=== PATIENT | male | born 1960 | race African-American/Black ===

== ENCOUNTER 2019-09-29 00:10 | Emergency (ER) | payer MEDICARE, MEDICAID ==
[~2019-09-29] VITALS: Ht 180.3 cm; Wt 81.6 kg
[2019-09-29 00:10] VITALS: BP 146/98
--- NOTE | 2019-09-29 00:34 | NUR ---
Dr Vazquez paged per Dr Esparza
--- NOTE | 2019-09-29 00:34 | NUR ---
PATIENT CAME TO ER BED 11 C/O DEPRESSION AND PAIN "ALL OVER HIS BODY". PATIENT STATES THAT HIS GIRLFRIEND TOOK HIS PAIN MEDICATIONS. HE STATES HE HAS CRYING SPELLS. HE DENIES SUICIDAL IDEATION AND HOMICIDAL INTENT. PATIENT IS AAOX4. NO SOB. BREATHING EVENLY AND UNLABORED ON ROOM AIR. CONNECTED TO MONITOR.
--- NOTE | 2019-09-29 01:30 | NUR ---
DR. PARMAR PAGED PER ER ORDER.
[2019-09-29] MEDS ORDERED: PREGABALIN 100 MG CAPSULE PO SCH (02:00)
[2019-09-29] MEDS ORDERED: PREGABALIN 100 MG CAPSULE ONE (03:12)
--- NOTE | 2019-09-29 03:15 | NUR ---
Obtained taxi voucher from nursing sup. Per [employer], no available taxi tonight.
--- NOTE | 2019-09-29 03:23 | NUR ---
Patient discharged to home in stable condition. Written and verbal after care instructions given. Patient verbalizes understanding of instruction.
--- NOTE | 2019-09-29 03:41 | NUR ---
PATIENT PICKED UP BY [facility].
== END 2019-09-29 03:49 | disposition home or self-care (01) ==
LOC: ER 00:13
DX: G89.29 Other chronic pain (principal)

== ENCOUNTER 2019-10-14 17:00 | Inpatient (IN) | payer MEDICARE, OTHER ==
[~2019-10-14] VITALS: Ht 172.7 cm; Wt 77.1 kg
--- NOTE | 2019-10-14 18:00 | NUR ---
patient came in to the er c/o depression x 3 months denies SI and HI. On room air, breathing evenly and unlabored. kept comfortable, will continue to monitor accordingly.
[2019-10-14 18:28] LABS: BASOPHILS % (AUTO) 0.3 % (0.0-2.0); EOSINOPHILS % (AUTO) 1.3 % (0.0-6.0); HEMATOCRIT 42 % (39-51); HEMOGLOBIN 13.7 g/dL (13.5-17.5); LYMPHOCYTES # (AUTO) 1.7 /CMM (0.8-4.8); LYMPHOCYTES % (AUTO) 22.2 % (20.0-44.0); MEAN CORPUSCULAR HGB CONC 33 g/dl (31.0-36.0); MEAN CORPUSCULAR VOLUME 93 fL (80-96); MONOCYTES # (AUTO) 0.7 /CMM (0.1-1.30); MONOCYTES % (AUTO) 9.5 % (2.0-12.0); NEUTROPHILS # (AUTO) 5.1 /CMM (1.8-8.9); NEUTROPHILS % (AUTO) 66.7 % (43.0-81.0); PLATELET COUNT (AUTO) 214 /CMM (150-450); RED BLOOD CELL COUNT(AUTO) 4.48 MIL/uL (4.5-6.0); WHITE BLOOD COUNT (AUTO) 7.6 K/uL (4.3-11.0)
[2019-10-14 18:41] LABS: ALANINE AMINOTRANSFERASE 33 U/L (12-78); ALBUMIN 3.6 g/dL (3.4-5.0); ALCOHOL, BLOOD 81 mg/dL (0-0); ALKALINE PHOSPHATASE 127 U/L (46-116); ASPARTATE AMINOTRANSFERASE 25 U/L (15-37); BILIRUBIN,DIRECT 0.2 mg/dL (0.0-0.2); BILIRUBIN,TOTAL 0.7 mg/dL (0.2-1.0); CALCIUM, SERUM 8.8 mg/dL (8.5-10.1); CARBON DIOXIDE 27 mmol/L (21-32); CHLORIDE 97 mmol/L (98-107); CREATININE 0.8 mg/dL (0.6-1.3); GLUCOSE 82 mg/dL (74-106); POTASSIUM 3.9 mmol/L (3.5-5.1); SALICYLATE 4.3 mg/dL (2.8-20.0); SODIUM SERUM 134 mmol/L (136-145); TOTAL PROTEIN, SERUM 7.3 g/dL (6.4-8.2); UREA NITROGEN, BLOOD 7 mg/dL (7-18)
[2019-10-14 18:57] LABS: ACETAMINOPHEN < 2 ug/ml (10-30)
--- NOTE | 2019-10-14 19:05 | NUR ---
urine collected and sent to lab
[2019-10-14 19:06] LABS: APPEARANCE,URINE Clear (CLEAR); BILIRUBIN,URINE Negative (NEGATIVE); BLOOD, URINE Trace-intact Ery/uL (NEGATIVE); COLOR,URINE Yellow (YELLOW); KETONES,URINE Negative (NEGATIVE); LEUKOCYTE ESTERASE ,URINE Negative (NEGATIVE); NITRITE, URINE Negative (NEGATIVE); PH,URINE 5.5 (5.0-8.0); PROTEIN,URINE Negative (NEGATIVE); UGLUCOSE Negative (NEGATIVE); UROBILINOGEN,URINE 0.2 EU/dL (0.2)
[2019-10-14 19:16] LABS: BACTERIA,URINE None seen /HPF (None Seen); SQUAMOUS EPITHELIAL CELL,UR Few /HPF (None Seen); WBC,URINE 0-2 /HPF (0-3)
--- NOTE | 2019-10-14 19:25 | NUR ---
REPORT RECEIVED FROM TAVO LITTLE FOR JAYLYN
--- NOTE | 2019-10-14 20:25 | NUR ---
Pinky at bedside for psych evaluation.
--- NOTE | 2019-10-14 20:54 | NUR ---
DR. SEALS SPEAKING WITH DR. PARMAR REGARDING ADMISSION
[2019-10-14] MEDS ORDERED: MAGNESIUM HYDROXIDE 30 ML UDC PO PRN (23:30)
[2019-10-14] MEDS ORDERED: BLOOD SUGAR DIAGNOSTIC 1 EACH STRIP IN ONE (23:30)
[2019-10-14] MEDS ORDERED: ACETAMINOPHEN 325 MG TABLET PO PRN (23:30)
[2019-10-14] MEDS ORDERED: MAG HYDROX/AL HYDROX/SIMETH 30 ML UDC PO PRN (23:30)
[2019-10-14] MEDS ORDERED: NEOM28OI22 TP (23:49)
[2019-10-14] MEDS ORDERED: NEOM28.43 TP (23:49)
[2019-10-14] MEDS ORDERED: TOLN30CR TP (23:49)
[2019-10-14] MEDS ORDERED: TRIA80OI TP (23:49)
[2019-10-14] MEDS ORDERED: BUPR8TAB4 SL (23:49)
[2019-10-14 23:58] VITALS: BP 105/77
[2019-10-15] MEDS: LORAZEPAM 0.5 MG TABLET PO PRN ×2 (01:36→09:17)
--- NOTE | 2019-10-15 02:27 | NUR ---
GPS DRUM ATTENDANT NOTES: RECEIVED PATIENT FROM ER ORIGINALLY FROM HOME. PT ARRIVED UNIT AT 2300 VIA HOSPITAL BED/STRETCHER WITH ONE ER STAFF. PT IS ADMITTED ON 5150 HOLD PLACED IN THE ER ON 10/14/2019 @ 2035 FOR GD. PER HOLD PT IS DEPRESSED, HEARS VOICES, THINKS PEOPLE ARE TALKING ABOUT HIM, DISORGANIZED, FORGETFUL, HAVING PANIC ATTACKS, AND NONE COMPLIANT WITH HIS MEDICATION UPON FACE TO FACE ASSESSMENT PT WAS A/O X3, APPEARS DEPRESSED, RESTLESS, ANXIOUS, PARANOID, COOPERATIVE. PT IS DISPLAYING NO S/S OF OF APPARENT DISTRESS. RESPIRATION EVEN AND UNLABORED WITH EQUAL RISE AND FALL OF THE CHEST, ON ROOM AIR WITH SPO2 OF 94%. PT REFUSED TO SIGN ALL ADMISSION PAPERS, SKIN ASSESSMENT DONE AND PLACED IN PT CHART, MRSA DONE IN ER AND PENDING, ACCU-CHEK DONE, [id number]. PT HAS WEAK/UNSTEADY GAIT AND IS HIGH FALL RISK. PT ASKED FOR ANXIETY MEDICATION, ATIVAN 0.5MG 1 TAB GIVEN PO PRN ORDERED. PT HAS NO NEEDS AT THIS TIME. PER PT HIS MEDICAL CONDITIONS ARE FIBROMYALGIA, SPINAL STENOSIS, AND DEGENERATIVE DISC JOINT DISEASE. PT IS UNDER THE PSYCHIATRIC CARE OF DR ZARAGOZA, AND MEDICAL CARE OF [facility]. PER PT, HE IS ON REGULAR DIET. PT BELONGINGS INVENTORIED AND CONTRABAND PLACED IN SAFE. PT ORIENTED TO UNIT, STAFF AND DOCTOR, AND A COPY OF PRESCRIPTION GUIDE GIVEN. PT AND SOCIAL CONSULT ORDERED. PT BED ALARM IS ON, SIDE RAILS ARE UP X2 FOR SAFETY, BED IN LOW LOCKED POSITION. CARE PLAN INITIATED, WILL MONITOR Q15 AND Q1HR FOR SAFETY, MOOD AND BEHAVIOR.
[2019-10-15] MEDS ORDERED: FLUO10CA26 PO (02:58)
[2019-10-15] MEDS ORDERED: QUET25TA PO (02:58)
[2019-10-15 07:38] LABS: CREATININE 0.6 mg/dL (0.6-1.3)
[2019-10-15 07:49] LABS: CHOLESTEROL 155 mg/dL (<200); HDL CHOLESTEROL 90 mg/dL (40-60); LDL 53 mg/dL (0-99); TRIGLYCERIDES 55 mg/dL (30-150)
[2019-10-15 08:00] VITALS: BP 135/90
[2019-10-15] MEDS ORDERED: PREGABALIN 25 MG CAPSULE PO SCH (09:00)
[2019-10-15] MEDS ORDERED: CHLORDIAZEPOXIDE HCL 5 MG CAPSULE PO SCH (09:00)
[2019-10-15] MEDS: MULTIVITAMINS,THERAGRAN 1 UDTAB TABLET PO SCH (09:17)
[2019-10-15] MEDS: FOLIC ACID 1 MG TABLET PO SCH (09:17)
[2019-10-15] MEDS: THIAMINE HCL 100 MG TABLET PO SCH (09:17)
--- NOTE | 2019-10-15 11:33 | NUR ---
WOUND CARE CONSULT: PT PRESENTS WITH VERY DRY SCALY SKIN ON LOWER LEGS AND FEET, PRESENT ON ADMISSION. RECOMMENDATIONS MADE FOR SKIN CARE AND PROTECTION. DISCUSSED WITH NURSING STAFF. WILL SEE PRN. IN AGREEMENT WITH PLAN OF CARE.
[2019-10-15] MEDS: MINERAL OIL/PETROLATUM,WHITE 120 GM JAR TP SCH (12:00)
[2019-10-15] MEDS ORDERED: KEY,NONCONTROL,TO KEEP IN PYXI 1 EA MC ONE ×2 (14:10→16:37)
[2019-10-15] MEDS: BUPRENORPHINE 8MG TAB PO SCH ×2 (14:27→16:44)
[2019-10-15] MEDS ORDERED: PREG100C PO (14:29)
[2019-10-15] MEDS ORDERED: QUET300T2 PO (14:29)
[2019-10-15] MEDS ORDERED: FLUO20CA36 PO (14:29)
[2019-10-15] MEDS ORDERED: LORAZEPAM 1 MG TABLET PO PRN (14:30)
[2019-10-15] MEDS ORDERED: MULT-447 PO (14:35)
[2019-10-15] MEDS ORDERED: BUPRENORPHINE PEG (14:35)
[2019-10-15] MEDS ORDERED: MAG355OR18 PO (14:35)
[2019-10-15] MEDS ORDERED: ACET325T53 PO (14:35)
[2019-10-15] MEDS ORDERED: THIA100T74 PO (14:35)
[2019-10-15] MEDS ORDERED: FOLIC ACID PO (14:35)
[2019-10-15] MEDS ORDERED: MAGN400O6 PO (14:35)
[2019-10-15] MEDS: CHLORDIAZEPOXIDE HCL 25 MG CAPSULE PO SCH ×2 (15:03→16:44)
--- NOTE | 2019-10-15 15:04 | NUR ---
Returned narcotic guerra in the [employer] drawer.
[2019-10-15] MEDS: Fluoxetine 10 mg capsule PO SCH (15:30)
[2019-10-15 16:00] VITALS: BP 106/68
[2019-10-15] MEDS: PREGABALIN 100 MG CAPSULE PO SCH (16:44)
[2019-10-15] MEDS: METHOCARBAMOL (750MG) 750 MG TABLET PO SCH (16:44)
--- NOTE | 2019-10-15 16:46 | NUR ---
Returned narcotic guerra in the [employer] drawer, and remaining 1.
--- NOTE | 2019-10-15 18:00 | NUR ---
Called pharmacy regarding Prozac but still not available, will hold Prozac at this time.
--- NOTE | 2019-10-15 18:44 | NUR ---
RN Closing note Patient sitting on bed, does no appears anxiety or restlessness. Pt took all scheduled medications with compliance during day shift. Skin is warm to touch, respiratory even and unlabored on room air, O2sat 97%, no distress observed. Kept bed in locked, side rails up x 2, will endorse security shift manager and continue to monitor for safety.
[2019-10-15] MEDS ORDERED: ALBUTEROL FS 2.5 MG/0.5 ML VIAL.NEB NEB PRN (19:30)
[2019-10-15 20:02] VITALS: BP 118/80
--- NOTE | 2019-10-15 20:03 | NUR ---
RN NOTE: RECEIVED PT SITTING ON BED. ALERT AND ORIENTED X3, ANXIOUS, RESTLESS, ASKING FOR MEDICATION TO HELP WITH ANXIETY, REFUSING REDIRECTION AND GETTING AGITATED. ATIVAN 1MG 1 TAB GIVEN PO PRN ORDERED AT 2001. WILL CONTINUE TO MONITOR.
[2019-10-15] MEDS: QUETIAPINE FUMARATE 100 MG TABLET PO SCH (21:42)
[2019-10-15] MEDS: TAMSULOSIN 0.4 MG CAP.SR.24H PO SCH (21:42)
--- NOTE | 2019-10-15 21:46 | NUR ---
GPS RN NOTE: PT COMPLAINED OF HEADACHE, TYLENOL 325MG 2 TABS GIVEN PO PRN ORDERED AT 2145. WILL CONTINUE TO MONITOR.
--- NOTE | 2019-10-16 06:50 | NUR ---
GPS RN CLOSING NOTES: PT IS LAYING ON BED AWAKE, ALERT AND ORIENTED X3. RESPIRATION EVEN AND UNLABORED WITH EQUAL RISE AND FALL OF THE CHEST. ALL CARE NEEDS, TREATMENT AND MEDICATIONS ADMINISTERED ANTICIPATED PER ORDER. PT IS MED COMPLIANT. THIS SHIFT PT HAD ATIVAN 1MG 1 TAB, RESTORIL 7.5MG 1 TAB AND TYLENOL 325MG 2 TABS PO PRN ORDERED. PT DENIES ANY PAIN AT THIS TIME. SAFETY PRECAUTION TAKEN. BED IN LOWEST LOCKED POSITION, SIDE RAILS UPX2, CALL LIGHT WITHIN REACH. WILL CONTINUE TO MONITOR [id number] AND Q1HR PER GPS PROTOCOL FOR SAFETY, MOOD AND BEHAVIOR AND ENDORSE TO AM SHIFT.
[2019-10-16 08:00] VITALS: BP 121/76
[2019-10-16] MEDS ORDERED: KEY,NONCONTROL,TO KEEP IN PYXI 1 EA MC ONE (08:34)
[2019-10-16] MEDS: METHOCARBAMOL (750MG) 750 MG TABLET PO SCH ×3 (09:00→17:42)
[2019-10-16] MEDS: PREGABALIN 100 MG CAPSULE PO SCH ×3 (09:55→17:43)
[2019-10-16] MEDS: SPIRONOLACTONE 25 MG TABLET PO SCH (09:55)
[2019-10-16] MEDS: THIAMINE HCL 100 MG TABLET PO SCH (09:55)
[2019-10-16] MEDS: BUPRENORPHINE 8MG TAB PO SCH ×3 (09:56→17:42)
[2019-10-16] MEDS: MULTIVITAMINS,THERAGRAN 1 UDTAB TABLET PO SCH (09:56)
[2019-10-16] MEDS: FOLIC ACID 1 MG TABLET PO SCH (09:56)
[2019-10-16] MEDS: CHLORDIAZEPOXIDE HCL 25 MG CAPSULE PO SCH ×4 (09:56→21:42)
[2019-10-16] MEDS: PANTOPRAZOLE 40 MG TABLET.DR PO SCH (09:56)
[2019-10-16] MEDS: Fluoxetine 10 mg capsule PO SCH (11:21)
--- NOTE | 2019-10-16 11:29 | NUR ---
CAREGIVER CONTACT: ZEENAT contacted pts caregiver Gil ([phone]) to confirm he is able to provide care for pt once discharged home. Gil confirmed and stated he lives next door to pt and is able to continue to provide care for pt and also stated he will be able to provide transportation to pt.
[2019-10-16] MEDS: MINERAL OIL/PETROLATUM,WHITE 120 GM JAR TP SCH (11:47)
--- NOTE | 2019-10-16 12:40 | NUR ---
INITIAL DISCHARGE PLAN: Pt [place] to return [place] [address] [place] [address]. SW will help form a safe and proper discharge plan in collaboration with .
[2019-10-16 16:00] VITALS: BP 120/70
--- NOTE | 2019-10-16 18:00 | NUR ---
DR. BURNHAM IN AND SPENT SOME TIME WITH PT.SOME MED CHANGES MADE.
[2019-10-16 19:55] VITALS: BP 131/72
[2019-10-16 20:00] VITALS: BP 131/72
[2019-10-16 20:40] VITALS: BP 128/75
--- NOTE | 2019-10-16 21:10 | NUR ---
GPS RN NOTE: REFUSED SKIN ASSESSMENT PATIENT REFUSED SKIN ASSESSMENT X 3 TONIGHT DESPITE OF RISKS & BENEFITS EXPLANATIONS, STATED," I AM TIRED, THEY HAVE CHECKED ME ALREADY, HOW MANY TIMES YOU NEED TO DO THIS, I DO NOT WANT THIS. I NEED MY PRIVACY." WILL CONTINUE TO MONITOR FOR ANY CHANGES.
[2019-10-16] MEDS: TAMSULOSIN 0.4 MG CAP.SR.24H PO SCH (22:25)
[2019-10-16] MEDS: QUETIAPINE FUMARATE 100 MG TABLET PO SCH (22:40)
[2019-10-17 08:00] VITALS: BP 129/74
[2019-10-17] MEDS: METHOCARBAMOL (750MG) 750 MG TABLET PO SCH ×3 (09:02→17:02)
[2019-10-17] MEDS: SPIRONOLACTONE 25 MG TABLET PO SCH (09:02)
[2019-10-17] MEDS: FOLIC ACID 1 MG TABLET PO SCH (09:03)
[2019-10-17] MEDS: Fluoxetine 10 mg capsule PO SCH (09:03)
[2019-10-17] MEDS: THIAMINE HCL 100 MG TABLET PO SCH (09:03)
[2019-10-17] MEDS: MULTIVITAMINS,THERAGRAN 1 UDTAB TABLET PO SCH (09:03)
[2019-10-17] MEDS: BUPRENORPHINE 8MG TAB PO SCH ×3 (09:03→17:02)
[2019-10-17] MEDS: PREGABALIN 100 MG CAPSULE PO SCH ×3 (09:03→17:02)
[2019-10-17] MEDS: CHLORDIAZEPOXIDE HCL 25 MG CAPSULE PO SCH ×2 (09:03→12:16)
[2019-10-17] MEDS: PANTOPRAZOLE 40 MG TABLET.DR PO SCH (09:04)
[2019-10-17] MEDS: MINERAL OIL/PETROLATUM,WHITE 120 GM JAR TP SCH (10:08)
[2019-10-17] MEDS ORDERED: KEY,NONCONTROL,TO KEEP IN PYXI 1 EA MC ONE ×2 (12:02→15:56)
[2019-10-17 16:00] VITALS: BP 107/77
[2019-10-17 19:36] VITALS: BP 99/69
[2019-10-17 21:19] VITALS: BP 120/76
[2019-10-17] MEDS: TAMSULOSIN 0.4 MG CAP.SR.24H PO SCH (22:21)
[2019-10-17] MEDS: QUETIAPINE FUMARATE 100 MG TABLET PO SCH (22:22)
[2019-10-18] MEDS ORDERED: KEY,NONCONTROL,TO KEEP IN PYXI 1 EA MC ONE ×2 (07:53→12:36)
[2019-10-18] MEDS: PANTOPRAZOLE 40 MG TABLET.DR PO SCH (07:55)
[2019-10-18 08:00] VITALS: BP 102/59
[2019-10-18] MEDS: THIAMINE HCL 100 MG TABLET PO SCH (09:02)
[2019-10-18] MEDS: Fluoxetine 10 mg capsule PO SCH (09:02)
[2019-10-18] MEDS: PREGABALIN 100 MG CAPSULE PO SCH ×3 (09:02→17:13)
[2019-10-18] MEDS: MULTIVITAMINS,THERAGRAN 1 UDTAB TABLET PO SCH (09:02)
[2019-10-18] MEDS: SPIRONOLACTONE 25 MG TABLET PO SCH (09:02)
[2019-10-18] MEDS: METHOCARBAMOL (750MG) 750 MG TABLET PO SCH ×3 (09:02→17:13)
[2019-10-18] MEDS: FOLIC ACID 1 MG TABLET PO SCH (09:02)
[2019-10-18] MEDS: BUPRENORPHINE 8MG TAB PO SCH ×3 (09:02→17:13)
[2019-10-18] MEDS: MINERAL OIL/PETROLATUM,WHITE 120 GM JAR TP SCH (09:29)
[2019-10-18 16:00] VITALS: BP 113/76
[2019-10-18 20:00] VITALS: BP 120/73
--- NOTE | 2019-10-18 20:08 | NUR ---
RN NOTES: FEELS HUNGRY, GIVEN SANDWICH AND JUICE, HE WAS HAPPY , ENCOURAGE TO SLEEP IN HIS BED IN LYING DOWN POSITION NOT ON SITTING POSITION HE SAID "ILL TRY LATER".
[2019-10-18 20:21] VITALS: BP 120/73
[2019-10-18] MEDS: TAMSULOSIN 0.4 MG CAP.SR.24H PO SCH (21:35)
[2019-10-18] MEDS: QUETIAPINE FUMARATE 100 MG TABLET PO SCH (21:36)
--- NOTE | 2019-10-19 02:56 | NUR ---
RN NOTES: ABLE TO SLEEP LYING ON BED, NO SEIZURE,NO RESPIRATORY DISCOMFORT NOTED, SLEPT WELL.
--- NOTE | 2019-10-19 04:10 | NUR ---
RN NOTES: AWAKE, HE WANTS TO PEE, GIVEN URINAL, ASSISTED BUT UNABLE TO PEE, PROVIDED WITH A COMMODE NEED ASSISTANCE TO BE ABLE TO GET UP AND TRANSFER FROM WALKER TO THE COMMODE,TOOK MORE THAN 15 MIN. TO FINISHED HIS PEE,PASS DARK YELLOWISH BROWN COLORED URINE. Addendum: 10/19/19 at 0424 by NED CHAVIRA RN ADDED NOTES: ASSISTED BACK TO BED,TRYING TO GET BACK TO SLEEP ON SITTING POSITION, ENCOURAGE TO LIE DOWN HE SAID "LATER".
--- NOTE | 2019-10-19 06:49 | NUR ---
RN NOTES: STILL ASLEEP, NO SIGN OF RESPIRATORY DISTRESS, NO SEIZURE, NO SUICIDAL THOUGHTS, NO PERIODS OF AGITATION,FALL,SAFETY AND ASPIRATION PRECAUTION OBSERVED. ENDORSED FOR CONTINUITY OF CARE
[2019-10-19 08:00] VITALS: BP 123/79
[2019-10-19] MEDS ORDERED: KEY,NONCONTROL,TO KEEP IN PYXI 1 EA MC ONE (08:12)
[2019-10-19] MEDS: MULTIVITAMINS,THERAGRAN 1 UDTAB TABLET PO SCH (08:48)
[2019-10-19] MEDS: PREGABALIN 100 MG CAPSULE PO SCH ×2 (08:48→16:48)
[2019-10-19] MEDS: METHOCARBAMOL (750MG) 750 MG TABLET PO SCH ×3 (08:48→16:48)
[2019-10-19] MEDS: THIAMINE HCL 100 MG TABLET PO SCH (08:48)
[2019-10-19] MEDS: PANTOPRAZOLE 40 MG TABLET.DR PO SCH (08:48)
[2019-10-19] MEDS: FOLIC ACID 1 MG TABLET PO SCH (08:48)
[2019-10-19] MEDS: SPIRONOLACTONE 25 MG TABLET PO SCH (08:48)
[2019-10-19] MEDS: Fluoxetine 10 mg capsule PO SCH (08:49)
[2019-10-19] MEDS: BUPRENORPHINE 8MG TAB PO SCH ×2 (08:49→16:48)
[2019-10-19] MEDS: MINERAL OIL/PETROLATUM,WHITE 120 GM JAR TP SCH (09:01)
--- NOTE | 2019-10-19 10:44 | NUR ---
GPS/RN-NOTES RECEIVED PATIENT SLEEPING IN BED IN SITTING POSITION WITH BREATHING EVEN AND NONLABORED EASILY AROUSE .NO ACUTE DISTRESS NOTED.ENCOURAGED PATIENT TO SLEEP LAYING DOWN IN BED TO PREVENT BACKACHE. PATIENT STATED" I'M FINE, I BEEN SLEEPING LIKE THIS FOR 10 YEARS ". COMPLIANT WITH MEDICATIONS. NEEDS ASSIST WITH AMBULATING USING WALKER TO THE BATHROOM.ENCOURAGED AND OFFERED SHOWER BUT PATIENT REFUSED TO SHOWER.ALL NEEDS ATTENDED AND ANTICIPATED. WILL CONT MONITORING FOR SAFETY AND BEHAVIOR.
[2019-10-19 16:00] VITALS: BP 99/60
--- NOTE | 2019-10-19 18:42 | NUR ---
GPS/RN CLOSING NOTES PATIENT IN THE ROOM EATING DINNER,NOTED WITH GUARDED EASILY IRRITABLE AND ANGRY BEHAVIOR.NO ACUTE DISTRESS NOTED. PATIENT ISOLATIVE IN THE ROOM, PREFERS TO STAY IN THE ROOM ALL DAY . ENCOURAGED PATIENT TO PARTICIPATES WITH CARE RENDERED BY THE STAFF AND OFFERED SHOWER BUT PATIENT REFUSED. WILL ENDORSE TO INCOMING NURSE FOR CONTINUITY OF CARE, MONITORING BEHAVIOR AND SAFETY.
[2019-10-19 20:00] VITALS: BP 121/65
[2019-10-19] MEDS: QUETIAPINE FUMARATE 100 MG TABLET PO SCH (21:01)
[2019-10-19] MEDS: TAMSULOSIN 0.4 MG CAP.SR.24H PO SCH (21:01)
[2019-10-20 08:00] VITALS: BP 109/76
[2019-10-20] MEDS ORDERED: KEY,NONCONTROL,TO KEEP IN PYXI 1 EA MC ONE ×2 (09:22→16:47)
[2019-10-20] MEDS: Fluoxetine 10 mg capsule PO SCH (09:30)
[2019-10-20] MEDS: PREGABALIN 100 MG CAPSULE PO SCH ×2 (09:30→16:52)
[2019-10-20] MEDS: PANTOPRAZOLE 40 MG TABLET.DR PO SCH (09:30)
[2019-10-20] MEDS: THIAMINE HCL 100 MG TABLET PO SCH (09:31)
[2019-10-20] MEDS: MULTIVITAMINS,THERAGRAN 1 UDTAB TABLET PO SCH (09:32)
[2019-10-20] MEDS: METHOCARBAMOL (750MG) 750 MG TABLET PO SCH ×3 (09:32→16:52)
[2019-10-20] MEDS: SPIRONOLACTONE 25 MG TABLET PO SCH (09:33)
[2019-10-20] MEDS: FOLIC ACID 1 MG TABLET PO SCH (09:34)
[2019-10-20] MEDS: MINERAL OIL/PETROLATUM,WHITE 120 GM JAR TP SCH (09:43)
[2019-10-20] MEDS: BUPRENORPHINE 8MG TAB PO SCH ×2 (09:43→16:51)
[2019-10-20 16:00] VITALS: BP 103/66
[2019-10-20 20:29] VITALS: BP 108/73
[2019-10-20] MEDS: TAMSULOSIN 0.4 MG CAP.SR.24H PO SCH (22:54)
[2019-10-20] MEDS: QUETIAPINE FUMARATE 100 MG TABLET PO SCH (22:54)
[2019-10-21 08:00] VITALS: BP 119/78
[2019-10-21] MEDS: PREGABALIN 100 MG CAPSULE PO SCH ×2 (08:25→16:47)
[2019-10-21] MEDS: MULTIVITAMINS,THERAGRAN 1 UDTAB TABLET PO SCH (08:25)
[2019-10-21] MEDS: SPIRONOLACTONE 25 MG TABLET PO SCH (08:25)
[2019-10-21] MEDS: Fluoxetine 10 mg capsule PO SCH (08:26)
[2019-10-21] MEDS: PANTOPRAZOLE 40 MG TABLET.DR PO SCH (08:26)
[2019-10-21] MEDS: FOLIC ACID 1 MG TABLET PO SCH (08:26)
[2019-10-21] MEDS: METHOCARBAMOL (750MG) 750 MG TABLET PO SCH ×3 (08:26→16:46)
[2019-10-21] MEDS: THIAMINE HCL 100 MG TABLET PO SCH (08:26)
[2019-10-21] MEDS: MINERAL OIL/PETROLATUM,WHITE 120 GM JAR TP SCH (08:27)
[2019-10-21] MEDS ORDERED: KEY,NONCONTROL,TO KEEP IN PYXI 1 EA MC ONE ×2 (08:34→16:28)
[2019-10-21] MEDS: BUPRENORPHINE 8MG TAB PO SCH ×2 (08:38→16:47)
--- NOTE | 2019-10-21 09:00 | NUR ---
RN NOTE- PT ALERT SITTING UP IN BED INTERACTIVE ENGAGES IN CONVERSATION. [facility] CONTACTS SMILES A BIT DENIES SI HI AH [facility]H MED COMPLIANT PO INTAKE GOOD
[2019-10-21 16:00] VITALS: BP 130/78
[2019-10-21 20:27] VITALS: BP 107/67
[2019-10-21] MEDS: TAMSULOSIN 0.4 MG CAP.SR.24H PO SCH (21:40)
[2019-10-21] MEDS: QUETIAPINE FUMARATE 100 MG TABLET PO SCH (21:41)
[2019-10-22] MEDS: PANTOPRAZOLE 40 MG TABLET.DR PO SCH (07:40)
[2019-10-22 08:00] VITALS: BP 101/58
[2019-10-22] MEDS: Fluoxetine 10 mg capsule PO SCH (08:41)
[2019-10-22] MEDS: METHOCARBAMOL (750MG) 750 MG TABLET PO SCH ×3 (08:42→16:31)
[2019-10-22] MEDS: MULTIVITAMINS,THERAGRAN 1 UDTAB TABLET PO SCH (08:42)
[2019-10-22] MEDS: FOLIC ACID 1 MG TABLET PO SCH (08:42)
[2019-10-22] MEDS: PREGABALIN 100 MG CAPSULE PO SCH ×2 (08:42→16:31)
[2019-10-22] MEDS: SPIRONOLACTONE 25 MG TABLET PO SCH (08:42)
[2019-10-22] MEDS: THIAMINE HCL 100 MG TABLET PO SCH (08:42)
[2019-10-22] MEDS ORDERED: KEY,NONCONTROL,TO KEEP IN PYXI 1 EA MC ONE ×2 (08:46→16:48)
[2019-10-22] MEDS: BUPRENORPHINE 8MG TAB PO SCH ×2 (08:49→16:57)
[2019-10-22] MEDS: MINERAL OIL/PETROLATUM,WHITE 120 GM JAR TP SCH (08:50)
--- NOTE | 2019-10-22 09:00 | NUR ---
RN NOTE- SMILING AND LAUGHING SOME TODAY TELE MED W DR ZARAGOZA MED COMPLIANT VERBALIZING DC PLANS AND DESIRE TO MOVE AHEAD. PO INTAKE [facility]. PAIN ISSUES CONTINUE THOUGH DECREASED W CURRENT RX DENIES SI HI AH VH
--- NOTE | 2019-10-22 15:57 | NUR ---
CAREGIVER CONTACT: ZEENAT contacted pts caregiver Gil ([phone]) to inform him pt will be discharged on 10/24/19. He states that he wishes for SW to call him tomorrow to coordinate the lemon picker time.
[2019-10-22 16:00] VITALS: BP 106/68
[2019-10-22 20:05] VITALS: BP 117/73
[2019-10-22] MEDS: QUETIAPINE FUMARATE 100 MG TABLET PO SCH (22:01)
[2019-10-22] MEDS: TAMSULOSIN 0.4 MG CAP.SR.24H PO SCH (22:01)
--- NOTE | 2019-10-22 23:00 | NUR ---
NURSES NOTES: NOTED PATIENT TO BE SLEEPY. TAR DISTILLATION SUPERVISOR ASK IF HE CAN POSITION IN BED GOOD SO HE WILL BE SAFE AND PREVENTS HIM FROM FALLING. PATIENT STATED HE IS OKAY AND THAT HE IS LOOKING FOR HIS SHOIES. TAR DISTILLATION SUPERVISOR TOLD HIM THAT HIS SHOES ARE IN THE LOCKER.
[2019-10-23 08:00] VITALS: BP 116/69
[2019-10-23] MEDS: PREGABALIN 100 MG CAPSULE PO SCH ×2 (09:32→17:31)
[2019-10-23] MEDS: MULTIVITAMINS,THERAGRAN 1 UDTAB TABLET PO SCH (09:32)
[2019-10-23] MEDS: THIAMINE HCL 100 MG TABLET PO SCH (09:32)
[2019-10-23] MEDS: METHOCARBAMOL (750MG) 750 MG TABLET PO SCH ×3 (09:33→17:31)
[2019-10-23] MEDS: SPIRONOLACTONE 25 MG TABLET PO SCH (09:33)
[2019-10-23] MEDS: FOLIC ACID 1 MG TABLET PO SCH (09:33)
[2019-10-23] MEDS: PANTOPRAZOLE 40 MG TABLET.DR PO SCH (09:33)
[2019-10-23] MEDS: Fluoxetine 10 mg capsule PO SCH (09:33)
[2019-10-23] MEDS: MINERAL OIL/PETROLATUM,WHITE 120 GM JAR TP SCH (09:35)
[2019-10-23] MEDS ORDERED: KEY,NONCONTROL,TO KEEP IN PYXI 1 EA MC ONE (10:02)
[2019-10-23] MEDS: BUPRENORPHINE 8MG TAB PO SCH ×2 (10:07→16:56)
[2019-10-23 16:00] VITALS: BP 114/81
--- NOTE | 2019-10-23 16:09 | NUR ---
CAREGIVER CONTACT: ZEENAT contacted pts caregiver Gil ([phone]) to coordinate pts discharge. Caregiver states he will pick pt up at 12:30pm and transport home.
[2019-10-23 19:59] VITALS: BP 101/73
[2019-10-23] MEDS: TAMSULOSIN 0.4 MG CAP.SR.24H PO SCH (21:33)
[2019-10-23] MEDS: QUETIAPINE FUMARATE 100 MG TABLET PO SCH (21:33)
[2019-10-24 08:00] VITALS: BP 132/79
[2019-10-24] MEDS: PANTOPRAZOLE 40 MG TABLET.DR PO SCH (08:07)
[2019-10-24] MEDS: FOLIC ACID 1 MG TABLET PO SCH (08:08)
[2019-10-24] MEDS: MULTIVITAMINS,THERAGRAN 1 UDTAB TABLET PO SCH (08:08)
[2019-10-24] MEDS: SPIRONOLACTONE 25 MG TABLET PO SCH (08:08)
[2019-10-24] MEDS: METHOCARBAMOL (750MG) 750 MG TABLET PO SCH (08:08)
[2019-10-24] MEDS: PREGABALIN 100 MG CAPSULE PO SCH (08:09)
[2019-10-24] MEDS: Fluoxetine 10 mg capsule PO SCH (08:09)
--- NOTE | 2019-10-24 08:46 | NUR ---
DISCHARGE NOTE: Pt will be discharged at 12:30pm via private vehicle home [address] [place] [address]. Pts caregiver Gil ([phone]) will pick pt up and transport home. Pts mood is euthymic with congruent affect. Pt denied visual/auditory hallucinations and denied suicidal/homicidal ideation. Pt is alert and oriented x4 and is appropriately dressed and groomed. Pt will follow up with Psychiatrist: Dr. Perez Address: [address] [place] [address] on 11/04/19 at 2:00pm. Pt will also follow up with Filing Machine Operator: Dr. Erica Vazquez Address: [address] [place] [address] on 10/31/19 at 11:00am. Patient was referred to the [address] [address] / and was encouraged to present at 9am on 10/25/19 at 9L00am. Additional resources included [facility] [address] [place] [address] and [facility] [address] [place] [address] .The multidisciplinary exit care form was done, printed, signed, and given to the patient.
[2019-10-24] MEDS ORDERED: KEY,NONCONTROL,TO KEEP IN PYXI 1 EA MC ONE (08:52)
[2019-10-24] MEDS: BUPRENORPHINE 8MG TAB PO SCH (08:55)
[2019-10-24] MEDS: THIAMINE HCL 100 MG TABLET PO SCH (08:56)
[2019-10-24] MEDS: MINERAL OIL/PETROLATUM,WHITE 120 GM JAR TP SCH (09:18)
--- NOTE | 2019-10-24 10:31 | NUR ---
Dr. Perez gave an order to the charge to d/c hold and d/c home and to follow up with the psych and medical doctors. Pt. without distress, denies suicidal and homicidal. Dr. Vazquez made aware of the discharge and reconciled the meds and said pt. doesn't prescriptions, he has meds at home. Pictures taken for the skin issues, belongings and discharge papers ready.
--- NOTE | 2019-10-24 12:55 | NUR ---
Pt. left the unit belongings and wheeled by staff to the lobby. Left without distress and on stable condition. Pt. being picked up by the health care sanitary technician Gil Gomes Pt. and care caregiver were explained on meds to continue and verbalizes understanding and to and advised to make a follow up with psych and medical doctors and agree.
== END 2019-10-24 12:55 | disposition home or self-care (01) | DRG 885 ==
LOC: ER 17:06 → GPS 22:10
PROVIDERS: ADMIT Psychiatry & Neurology Psychiatry; ATTEND General Practice
DX: F31.9 Bipolar disorder, unspecified (principal); F11.20 Opioid dependence, uncomplicated; F10.239 Alcohol dependence with withdrawal, unspecified; F29 Unspecified psychosis not due to a substance or known physiological condition; J44.9 Chronic obstructive pulmonary disease, unspecified; M79.7 Fibromyalgia; I10 Essential (primary) hypertension; Z73.6 Limitation of activities due to disability; Z91.81 History of falling; F03.90 Unspecified dementia, unspecified severity, without behavioral disturbance, psychotic disturbance, mood disturbance, and anxiety; Y90.9 Presence of alcohol in blood, level not specified; Y90.4 Blood alcohol level of 80-99 mg/100 ml; Z72.0 Tobacco use; Z79.899 Other long term (current) drug therapy; F41.9 Anxiety disorder, unspecified; G89.29 Other chronic pain; K21.9 Gastro-esophageal reflux disease without esophagitis; M51.36 Other intervertebral disc degeneration, lumbar region; M48.061 Spinal stenosis, lumbar region without neurogenic claudication
CPT/HCPCS: 36415; 80048-TC; 80061-TC; 80076-TC; 80305; 81000-TC; 82565-TC; 82962-TC; 85025-TC; 87081-TC; 97530-TC; G0480